=== PATIENT | male | born 1980 | race Caucasian/White ===

== ENCOUNTER 2017-05-12 22:00 | Emergency (ER) | payer OTHER ==
[~2017-05-12] VITALS: Ht 188 cm; Wt 90.7 kg
[2017-05-12 22:11] VITALS: BP 151/110
[2017-05-12] MEDS ORDERED: KEFLEX PO STA (22:23)
[2017-05-12] MEDS ORDERED: KEFLEX PO ONE (22:27)
--- NOTE | 2017-05-12 22:40 | ER.PDOC ---
General Chief Complaint: Neck/Upper back Pain Stated Complaint: FACE & NECK PAIN Time seen by MD: 22:37 Source: patient Exam Limitations: no limitations History of Present Illness Initial Comments 37 year old white male with complains of something crawling on his face. History of depression. Patient denies meth use but he appears to be having tactile hallucinations Severity/Quality: moderate Prior Headaches/Recent Trauma: no recent headache/trauma Associated Symptoms: facial pain Allergies: Coded Allergies: No Known Allergies (Unverified , 05/12/17) Past Medical History Medical History: no pertinent history Surgical History: no surgical history Social History Smoking: greater than 1 pack/day Alcohol Use: occassionally Drug Use: none Review of Systems Constitutional: no symptoms reported Eyes: no symptoms reported Ears, Nose, Mouth, Throat: see HPI Respiratory: no symptoms reported Cardiovascular: no symptoms reported Gastrointestinal: no symptoms reported Genitourinary: no symptoms reported Musculoskeletal: no symptoms reported Psychiatric/Neurological: no symptoms reported Physical Exam General Appearance: No Apparent Distress, WD/WN Head/Eyes: eyes nml inspection, no nystagmus, PERRL, abnml fundi ENT: pharynx nml Cardiovascular: Normal Peripheral Pulses, Regular Rate, Rhythm, No Edema, No Gallop, No JVD, No Murmur Respiratory: chest non-tender, lungs clear, normal breath sounds, no respiratory distress, no accessory muscle use Back: Normal Inspection, No CVA Tenderness, No Vertebral Tenderness Extremities: Normal Range of Motion, Non-Tender, Normal Inspection, No Pedal Edema, No Calf Tenderness, Normal Capillary Refill Cranial Nerves: Normal Hearing, Normal Speech, PERRL Coordination/Gait: Normal Finger to Nose, Normal Gait Skin: Other (hard tender with superficial excoriation right lateral neck area) Results/Orders Results/Orders Administered Medications Medications (Trade) Dose Ordered Sig/Víctor Route PRN Reason Start Time Stop Time Status Last Admin Dose Admin Cephalexin (Keflex) 1,000 mg STAT STAT PO 05/12/17 22:23 05/12/17 22:25 DC 05/12/17 22:29 Departure Time of Disposition: 22:40 Disposition: 01 HOME, SELF-CARE Impression: Primary Impression: Folliculitis Condition: Stable Referrals: PCP,UNKNOWN (PCP) PRIMARY CARE PROVIDER Additional Instructions: Keflex RTER prn Follow up PCP Duration or Time Spent with Pa: MEGAN ABERNATHY MD May 12, 2017 22:40
[2017-05-12 22:47] VITALS: BP 151/110
== END 2017-05-12 22:45 | disposition home or self-care (01) ==
LOC: ER 22:00
DX: L73.9 Follicular disorder, unspecified (principal); F32.9 Major depressive disorder, single episode, unspecified; R51 Headache; F17.200 Nicotine dependence, unspecified, uncomplicated
CPT/HCPCS: 99283